=== PATIENT | female | born 1995 | race Caucasian/White ===

== ENCOUNTER 2020-12-01 21:12 | Emergency (ER) | payer BC ==
[2020-12-01 21:27] VITALS: RESP 20; TEMP 98.3
[2020-12-01] MEDS ORDERED: ALBUTEROL NEB (CONC) 2.5 MG/0.5 ML INHALATION STA (21:38)
[2020-12-01] MEDS ORDERED: IPRATROPIUM-ALBUTEROL 3 ML NEB INHALATION STA ×2 (21:39→23:35)
[2020-12-01] MEDS ORDERED: methylPREDNISolone SOD SUCCI 125 MG/2 ML VIAL IM ONE (21:39)
--- NOTE | 2020-12-01 22:00 | ED ---
SOB HPI - General Chief Complaint: Shortness of Breath Stated Complaint: Diff Breathing Time Seen by Provider: 12/01/20 21:32 Source: patient Mode of arrival: wheelchair - History of Present Illness Initial Comments: 25-year-old female patient presents to the emergency department today for evaluation of cough and shortness of breath. Patient states she started 2 days ago with upper respiratory symptoms including nasal congestion and sore throat. States she developed a cough. Patient states today she feels like it is harder to take a deep breath and is concerned she may have pneumonia. Denies any fever or chills. States she has been slightly nauseated denies any vomiting. Denies any abdominal pain or back pain. States that she does have history of bronchitis and does vape. Denies chance of . Patient denies any recent rash, chest pain, abdominal pain, diarrhea, constipation, back pain, numbness, tingling, dizziness, weakness, hematuria, dysuria, urinary urgency, urinary frequency, headache, visual changes, or any other complaints. - Related Data Home Medications Medication Instructions Recorded Confirmed Ibuprofen [Motrin Ib] 400 mg PO Q8H PRN 12/01/20 12/01/20 Previous Rx's Medication Instructions Recorded Albuterol Sulfate [Proair Hfa] 1 - 2 puff INHALATION Q6HR PRN #1 12/01/20 inhaler guaiFENesin-DM 600/30MG [Mucinex 2 each PO Q12HR PRN #20 tab.er.12h 12/01/20 Dm] predniSONE 50 mg PO DAILY #5 tablet 12/01/20 Allergies Allergy/AdvReac Type Severity Reaction Status Date / Time No Known Allergies Allergy Verified 12/01/20 21:55 Review of Systems ROS Statement: Those systems with pertinent positive or pertinent negative responses have been documented in the HPI. ROS Other: All systems not noted in ROS Statement are negative. Past Medical History Past Medical History: Thyroid Disorder History of Any Multi-Drug Resistant Organisms: None Reported Past Surgical History: No Surgical Hx Reported Past Psychological History: No Psychological Hx Reported, Anxiety, Depression, PTSD Smoking Status: Vaper Past Alcohol Use History: None Reported Past Drug Use History: None Reported General Exam General appearance: alert, in no apparent distress, other (This is a well- developed, well-nourished adult female patient in no acute distress. Vital signs upon presentation are temperature 98.3F, pulse 110, respirations 20, blo od pressure 116/81, pulse ox 94% on room air.) Respiratory exam: Present: wheezes (Tight expiratory wheezing noted in the posterior lung schwarz). Absent: normal lung sounds bilaterally, respiratory distress, rales, rhonchi, stridor, accessory muscle use Cardiovascular Exam: Present: normal rhythm, tachycardia, normal heart sounds. Absent: systolic murmur, diastolic murmur, rubs, gallop, clicks GI/Abdominal exam: Present: soft, normal bowel sounds. Absent: distended, tenderness, guarding, rebound, rigid Neurological exam: Present: alert, oriented X3, CN II-XII intact Psychiatric exam: Present: normal affect, normal mood Skin exam: Present: warm, dry, intact, normal color. Absent: rash Course Vital Signs 12/01/20 12/01/20 12/01/20 21:25 22:01 22:08 Temperature 98.3 F Pulse Rate 110 H 93 96 Respiratory 20 20 Rate Blood Pressure 116/81 O2 Sat by Pulse 94 L Oximetry 12/01/20 12/01/20 12/01/20 23:37 23:41 23:52 Temperature 98.3 F Pulse Rate 111 H 111 H 116 H Respiratory Rate Blood Pressure 99/80 O2 Sat by Pulse 93 L Oximetry 12/01/20 23:57 Temperature Pulse Rate Respiratory Rate Blood Pressure O2 Sat by Pulse 96 Oximetry Medical Decision Making - Medical Decision Making 25-year-old female patient presents to the emergency department today for evaluation of shortness of breath and cough. Some his been going on for the last 2 days. Physical examination did reveal pharyngeal erythema. She did have tight expiratory wheezing noted throughout the posterior lung schwarz. Oxygen saturation upon arrival is round 94% on room air. Patient was given IM steroid injection and multiple breathing treatments. Chest x-ray is negative. Coronavi rupa test is negative. Upon reevaluation she is resting comfortably in bed and does report improve symptoms. She does have some mild wheezing remaining. Oxygen saturations did improve to 96%. Symptoms are consistent with acute bronchitis. She'll be discharged home with a course of steroids, Mucinex, and a Pro Air inhaler. She is instructed to follow-up with her primary care physician for recheck in 1-2 days. Return parameters were discussed in detail. She verbalizes understanding and agrees with this plan. Case discussed with Dr. Torres. - Lab Data Lab Results 12/01/20 12/01/20 Range/Units 21:53 22:01 Urine HCG, Qual Not Detected (Not Detectd) Coronavirus (PCR) Not Detected (Not Detectd) - Radiology Data Radiology results: report reviewed, image reviewed Two-view x-ray of the chest is obtained. Report was reviewed in its entirety. Impression by Dr. Nunez shows normal chest. Disposition Clinical Impression: Acute bronchitis Disposition: HOME SELF-CARE Condition: Good Instructions (If sedation given, give patient instructions): Acute Bronchitis (ED) Additional Instructions: Take medications as directed. Complete steroid prescription in full. Follow-up with your primary care physician for recheck in 1-2 days. Return to the emergency department for any new, worsening, or concerning symptoms. Prescriptions: guaiFENesin-DM 600/30MG [Mucinex Dm] 2 each PO Q12HR PRN #20 tab.er.12h PRN Reason: Cough predniSONE 50 mg PO DAILY #5 tablet Albuterol Sulfate [Proair Hfa] 1 - 2 puff INHALATION Q6HR PRN #1 inhaler PRN Reason: Shortness Of Breath Is patient prescribed a controlled substance at d/c from ED?: No Referrals: Maximiliano Lunsford MD [Primary Care Provider] - 1-2 days Time of Disposition: 23:17
--- NOTE | 2020-12-01 22:44 | XR ---
EXAMINATION TYPE: XR chest 2V DATE OF EXAM: 12/01/2020 COMPARISON: NONE HISTORY: Wheezing TECHNIQUE: 2 views FINDINGS: Heart and mediastinum are normal. Lungs are clear. Diaphragm is normal. Bony thorax appears normal. IMPRESSION: Normal chest.
[2020-12-01 23:37] VITALS: BP 99/80
[2020-12-01 23:53] VITALS: PULSE 116
== END 2020-12-01 23:55 | disposition home or self-care (01) ==
LOC: EC 21:12
DX: J20.9 Acute bronchitis, unspecified (principal); R00.0 Tachycardia, unspecified; F17.290 Nicotine dependence, other tobacco product, uncomplicated; Z20.822 Contact with and (suspected) exposure to COVID-19
CPT/HCPCS: 94640 ×2; 81025; 87635; 71046; 99285; 96372; J2930

== ENCOUNTER 2021-06-19 17:04 | Emergency (ER) | payer BC ==
[2021-06-19 18:24] VITALS: BP 129/75; PULSE 78; RESP 18; TEMP 98.6
[2021-06-19] MEDS ORDERED: ONDANSETRON 4 MG/2 ML VIAL IVP STA (20:48)
[2021-06-19] MEDS ORDERED: MORPHINE SULFATE 4 MG/ML SYRINGE IVP STA (20:48)
[2021-06-19] MEDS ORDERED: SODIUM CHLORIDE 0.9% 1,000 ML IV STA (20:48)
[2021-06-19 21:20] LABS: Appearance,Urine Clear (Clear); Bilirubin,Urine Negative (Negative); Blood,Urine Negative (Negative); Color,Urine Light Yellow; Glucose,Urine (UA) Negative (Negative); Ketones,Urine Negative (Negative); Leukocyte Esterase,Urine Trace (Negative); Mucus,Urine Rare /hpf; Nitrite,Urine Negative (Negative); Protein,Urine Negative (Negative); RBC,Urine <1 /hpf (0-5); Specific Gravity,Urine 1.015 (1.001-1.035); Squamous Epithelial Cell,Urine 4 /hpf (0-4); Urobilinogen,Urine <2.0 mg/dL (<2.0); WBC,Urine 1 /hpf (0-5)
[2021-06-19 22:01] LABS: ALT 17 U/L (4-34); AST 18 U/L (14-36); African American GFR (CKD) >90 (>60 ml/min/1.73 sqM); Albumin 4.5 g/dL (3.5-5.0); Alkaline Phosphatase 42 U/L (38-126); Amylase 41 U/L (30-110); Anion Gap 7 mmol/L; Blood Urea Nitrogen 13 mg/dL (7-17); Calcium 9.6 mg/dL (8.4-10.2); Carbon Dioxide 23 mmol/L (22-30); Chloride 106 mmol/L (98-107); Glucose 87 mg/dL (74-99); Lipase 103 U/L (23-300); Non-African American GFR(CKD) >90 (>60 ml/min/1.73 sqM); Potassium 4.5 mmol/L (3.5-5.1); Sodium 136 mmol/L (137-145); Total Bilirubin 0.5 mg/dL (0.2-1.3); Total Protein 7.9 g/dL (6.3-8.2)
[2021-06-19] MEDS ORDERED: KETOROLAC 15 MG/ML 1 ML VIAL IVP STA (22:01)
[2021-06-19 22:02] LABS: Basophils # (A) 0.1 k/uL (0-0.2); Basophils % (A) 1 %; Eosinophils # (A) 0.7 k/uL (0-0.7); Eosinophils % (A) 9 %; HGB 14.3 gm/dL (11.4-16.0); Lymphocytes # (A) 2.5 k/uL (1.0-4.8); Lymphocytes % (A) 33 %; MCH 34.2 pg (25.0-35.0); MCHC 34.1 g/dL (31.0-37.0); MCV 100.2 fL (80.0-100.0); Mean Platelet Volume 7.3; Monocytes # (A) 0.4 k/uL (0-1.0); Monocytes % (A) 5 %; Neutrophils # (A) 3.9 k/uL (1.3-7.7); Neutrophils % (A) 51 %; Platelet Count 282 k/uL (150-450); RBC 4.19 m/uL (3.80-5.40); RDW 12.6 % (11.5-15.5); WBC 7.7 k/uL (3.8-10.6)
--- NOTE | 2021-06-19 22:38 | CT ---
EXAMINATION TYPE: CT abdomen pelvis w con DATE OF EXAM: 06/19/2021 COMPARISON: HISTORY: LT side abdominal pain CT DLP: 1057.5 mGycm Automated exposure control for dose reduction was used. CONTRAST: Performed with IV Contrast, patient injected with 100 mL of Isovue 300. Images obtained from the diaphragm to the floor the pelvis with IV contrast. Lung bases are clear. There is no pleural effusion. Heart is normal. There is no pericardial effusion . Liver spleen stomach pancreas gallbladder appear intact. Bile ducts are not dilated. There is no adrenal mass. Kidneys show satisfactory contrast opacification. There is no hydronephrosi s. Ureters are not dilated. There is no retroperitoneal adenopathy. Bladder distends smoothly. Uterus is anteverted. There is no inguinal hernia. There is no evidence of a pelvic mass. There is no free fluid in the pelvis. Appendix is medial and appears normal. Delayed images show normal renal excretio n. There is no mesenteric edema. There is no ascites or free air. There is no sign of a bowel obstructio n. Lumbar vertebra have normal alignment. Posterior elements are intact. Facet joints are intact. Bon y pelvis is intact. Hip joints are intact. There is mild posterior central L4-5 lumbar disc herniatio n. IMPRESSION: Normal appendix. I do not see a cause for left side pain. No evidence of renal mass or obstruction.
[2021-06-19] MEDS ORDERED: ONDANSETRON 4 MG ODT STARTER PACK 2 TAB BTL PO STA (22:57)
--- NOTE | 2021-06-19 22:57 | ED ---
General Adult HPI - General Chief complaint: Abdominal Pain Stated complaint: abd pain Time Seen by Provider: 06/19/21 20:37 Source: patient Mode of arrival: ambulatory - History of Present Illness Initial comments: 25-year-old female without any significant past medical history presents to the emergency room for a chief complaint of abdominal pain. Patient states this started this morning around 8 AM. States she had woken up and was resting and the pain started. It did not start after food. She reports pain is on the left side of her abdomen states it is towards the top of her abdomen. Describes as a sharp pain. Patient is nauseous but denies vomiting. Denies fevers or chills. Denies diarrhea.Patient has no other complaints at this time including shortness of breath, chest pain, abdominal pain, nausea or vomiting, headache, or visual changes. - Related Data Home Medications Medication Instructions Recorded Confirmed Levothyroxine Sodium [Synthroid] 100 mcg PO DAILY 06/19/21 06/19/21 Previous Rx's Medication Instructions Recorded Famotidine [Pepcid] 20 mg PO BID #30 tablet 06/19/21 Ondansetron [Zofran ODT] 4 mg PO Q8HR PRN #15 tab 06/19/21 Allergies Allergy/AdvReac Type Severity Reaction Status Date / Time No Known Allergies Allergy Verified 06/19/21 20:59 Review of Systems ROS Statement: Those systems with pertinent positive or pertinent negative responses have been documented in the HPI. ROS Other: All systems not noted in ROS Statement are negative. Past Medical History Past Medical History: Thyroid Disorder History of Any Multi-Drug Resistant Organisms: None Reported Past Surgical History: No Surgical Hx Reported Past Psychological History: No Psychological Hx Reported, Anxiety, Depression, PTSD Smoking Status: Never smoker Past Alcohol Use History: None Reported Past Drug Use History: None Reported General Exam General appearance: alert, in no apparent distress Head exam: Present: atraumatic, normocephalic, normal inspection Eye exam: Present: normal appearance, PERRL, EOMI. Absent: scleral icterus, conjunctival injection ENT exam: Present: normal exam, mucous membranes moist Neck exam: Present: normal inspection, full ROM. Absent: tenderness Respiratory exam: Present: normal lung sounds bilaterally. Absent: respiratory distress, wheezes Cardiovascular Exam: Present: regular rate, normal rhythm, normal heart sounds GI/Abdominal exam: Present: soft, tenderness (Minimal left upper quadrant tenderness. No lower abdominal tenderness. No right upper quadrant tenderness. Negative Ramires sign.), normal bowel sounds. Absent: distended Course Vital Signs 06/19/21 18:21 Temperature 98.6 F Pulse Rate 78 Respiratory 18 Rate Blood Pressure 129/75 O2 Sat by Pulse 98 Oximetry Medical Decision Making - Medical Decision Making Vitals are stable. HPI and physical exam as documented. CBC CMP unremarkable. Urinalysis does not show any evidence of infection. HCG is negative. CT abdomen and pelvis shows a normal appendix. No cause for left-sided pain. No evidence for renal mass or obstruction. Patient was given pain medicine and had significant permanent symptoms. Stating her pain is almost gone. At this time patient and we discharged home to follow up with primary care. Her doctor wants to see her tomorrow for an appointment as he is who sent her in. She will return here for any worsening symptoms. - Lab Data Result diagrams: 06/19/21 21:43 06/19/21 21:43 Lab Results 06/19/21 06/19/21 06/19/21 Range/Units 21:10 21:16 21:43 WBC 7.7 (3.8-10.6) k/uL RBC 4.19 (3.80-5.40) m/uL Hgb 14.3 (11.4-16.0) gm/dL Hct 42.0 (34.0-46.0) % MCV 100.2 H (80.0-100.0) fL MCH 34.2 (25.0-35.0) pg MCHC 34.1 (31.0-37.0) g/dL RDW 12.6 (11.5-15.5) % Plt Count 282 (150-450) k/uL MPV 7.3 Neutrophils % 51 % Lymphocytes % 33 % Monocytes % 5 % Eosinophils % 9 % Basophils % 1 % Neutrophils # 3.9 (1.3-7.7) k/uL Lymphocytes # 2.5 (1.0-4.8) k/uL Monocytes # 0.4 (0-1.0) k/uL Eosinophils # 0.7 (0-0.7) k/uL Basophils # 0.1 (0-0.2) k/uL Sodium (137-145) mmol/L Potassium (3.5-5.1) mmol/L Chloride (98-107) mmol/L Carbon Dioxide (22-30) mmol/L Anion Gap mmol/L BUN (7-17) mg/dL Creatinine (0.52-1.04) mg/dL Est GFR (CKD-EPI)AfAm (>60 ml/min/1.73 sqM) Est GFR (CKD-EPI)NonAf (>60 ml/min/1.73 sqM) Glucose (74-99) mg/dL Calcium (8.4-10.2) mg/dL Total Bilirubin (0.2-1.3) mg/dL AST (14-36) U/L ALT (4-34) U/L Alkaline Phosphatase (38-126) U/L Total Protein (6.3-8.2) g/dL Albumin (3.5-5.0) g/dL Amylase (30-110) U/L Lipase (23-300) U/L Urine Color Light Yellow Urine Appearance Clear (Clear) Urine pH 5.0 (5.0-8.0) Ur Specific Wagoner 1.015 (1.001-1.035) Urine Protein Negative (Negative) Urine Glucose (UA) Negative (Negative) Urine Ketones Negative (Negative) Urine Blood Negative (Negative) Urine Nitrite Negative (Negative) Urine Bilirubin Negative (Negative) Urine Urobilinogen <2.0 (<2.0) mg/dL Ur Leukocyte Esterase Trace H (Negative) Urine RBC <1 (0-5) /hpf Urine WBC 1 (0-5) /hpf Ur Squamous Epith Cells 4 (0-4) /hpf Urine Mucus Rare H (None) /hpf Urine HCG, Qual Not Detected (Not Detectd) 06/19/21 Range/Units 21:43 WBC (3.8-10.6) k/uL RBC (3.80-5.40) m/uL Hgb (11.4-16.0) gm/dL Hct (34.0-46.0) % MCV (80.0-100.0) fL MCH (25.0-35.0) pg MCHC (31.0-37.0) g/dL RDW (11.5-15.5) % Plt Count (150-450) k/uL MPV Neutrophils % % Lymphocytes % % Monocytes % % Eosinophils % % Basophils % % Neutrophils # (1.3-7.7) k/uL Lymphocytes # (1.0-4.8) k/uL Monocytes # (0-1.0) k/uL Eosinophils # (0-0.7) k/uL Basophils # (0-0.2) k/uL Sodium 136 L (137-145) mmol/L Potassium 4.5 (3.5-5.1) mmol/L Chloride 106 (98-107) mmol/L Carbon Dioxide 23 (22-30) mmol/L Anion Gap 7 mmol/L BUN 13 (7-17) mg/dL Creatinine 0.72 (0.52-1.04) mg/dL Est GFR (CKD-EPI)AfAm >90 (>60 ml/min/1.73 sqM) Est GFR (CKD-EPI)NonAf >90 (>60 ml/min/1.73 sqM) Glucose 87 (74-99) mg/dL Calcium 9.6 (8.4-10.2) mg/dL Total Bilirubin 0.5 (0.2-1.3) mg/dL AST 18 (14-36) U/L ALT 17 (4-34) U/L Alkaline Phosphatase 42 (38-126) U/L Total Protein 7.9 (6.3-8.2) g/dL Albumin 4.5 (3.5-5.0) g/dL Amylase 41 (30-110) U/L Lipase 103 (23-300) U/L Urine Color Urine Appearance (Clear) Urine pH (5.0-8.0) Ur Specific Wagoner (1.001-1.035) Urine Protein (Negative) Urine Glucose (UA) (Negative) Urine Ketones (Negative) Urine Blood (Negative) Urine Nitrite (Negative) Urine Bilirubin (Negative) Urine Urobilinogen (<2.0) mg/dL Ur Leukocyte Esterase (Negative) Urine RBC (0-5) /hpf Urine WBC (0-5) /hpf Ur Squamous Epith Cells (0-4) /hpf Urine Mucus (None) /hpf Urine HCG, Qual (Not Detectd) Disposition Clinical Impression: Abdominal pain Disposition: HOME SELF-CARE Condition: Good Instructions (If sedation given, give patient instructions): Abdominal Pain (ED) Additional Instructions: Take medications as directed. Follow-up with primary care. Return to the emergency room for any worsening symptoms. Prescriptions: Famotidine [Pepcid] 20 mg PO BID #30 tablet Ondansetron [Zofran ODT] 4 mg PO Q8HR PRN #15 tab PRN Reason: Nausea Is patient prescribed a controlled substance at d/c from ED?: No Referrals: Maximiliano Lunsford MD [Primary Care Provider] - 1-2 days Time of Disposition: 22:56
== END 2021-06-19 23:39 | disposition home or self-care (01) ==
LOC: EC 17:04
DX: R10.9 Unspecified abdominal pain (principal); R11.0 Nausea; E07.9 Disorder of thyroid, unspecified; Z79.890 Hormone replacement therapy
CPT/HCPCS: 36415; 80053; 82150; 83690; 85025; 81001; 81025; 74177; 99284; 96374; 96375; 96361; J2405; J1885; S0119; Q9967

== ENCOUNTER 2021-09-23 03:47 | Emergency (ER) | payer BC ==
[2021-09-23] MEDS ORDERED: SODIUM CHLORIDE 0.9% 1,000 ML IV STA (04:17)
[2021-09-23] MEDS ORDERED: ONDANSETRON 4 MG/2 ML VIAL IVP STA (04:18)
[2021-09-23] MEDS ORDERED: PANTOPRAZOLE 40 MG/10 ML VIAL IVP STA (04:18)
--- NOTE | 2021-09-23 04:19 | ED ---
Overdose HPI - General Chief Complaint: Overdose Stated Complaint: poss drug ingestion,anxiety Time Seen by Provider: 09/23/21 04:02 Source: patient, family, RN notes reviewed, old records reviewed Mode of arrival: ambulatory Limitations: no limitations - History of Present Illness Initial Comments: This is a 25-year-old female to the emergency room today. Patient states evaluation regards to nausea vomiting weakness intoxication possible drug ingest ion. Patient does not feel well. Doesn't having abdominal pain very emotional crying. Not homicidal or suicidal. Denies any significant toxic drug and ingestion intentionally. Does admit to drinking alcohol MD Complaint: accidental overdose -: hour(s) How Overdose Was Discovered: family/friend present at time Context: Intentional Overdose: drug/ETOH problems Context: Accidental Overdose: wanted to get high Associated Symptoms: depression Treatments Prior to Arrival: none - Related Data Home Medications Medication Instructions Recorded Confirmed Levothyroxine Sodium [Synthroid] 100 mcg PO DAILY 06/19/21 06/19/21 Previous Rx's Medication Instructions Recorded Famotidine [Pepcid] 20 mg PO BID #30 tablet 06/19/21 Ondansetron [Zofran ODT] 4 mg PO Q8HR PRN #15 tab 06/19/21 Allergies Allergy/AdvReac Type Severity Reaction Status Date / Time No Known Allergies Allergy Verified 09/23/21 03:53 Review of Systems ROS Statement: Those systems with pertinent positive or pertinent negative responses have been documented in the HPI. ROS Other: All systems not noted in ROS Statement are negative. Past Medical History Past Medical History: Thyroid Disorder History of Any Multi-Drug Resistant Organisms: None Reported Past Surgical History: No Surgical Hx Reported Past Psychological History: No Psychological Hx Reported, Anxiety, Depression, PTSD Smoking Status: Never smoker Past Alcohol Use History: Occasional Past Drug Use History: Marijuana General Exam General appearance: alert, in no apparent distress Head exam: Present: atraumatic, normocephalic, normal inspection Eye exam: Present: normal appearance, PERRL, EOMI. Absent: scleral icterus, conjunctival injection, periorbital swelling ENT exam: Present: normal exam, mucous membranes moist Neck exam: Present: normal inspection. Absent: tenderness, meningismus, lymphadenopathy Respiratory exam: Present: normal lung sounds bilaterally. Absent: respiratory distress, wheezes, rales, rhonchi, stridor Cardiovascular Exam: Present: regular rate, normal rhythm, normal heart sounds. Absent: systolic murmur, diastolic murmur, rubs, gallop, clicks GI/Abdominal exam: Present: soft, normal bowel sounds. Absent: distended, tenderness, guarding, rebound, rigid Extremities exam: Present: normal inspection, full ROM, normal capillary refill. Absent: tenderness, pedal edema, joint swelling, calf tenderness Back exam: Present: normal inspection Neurological exam: Present: alert, oriented X3, CN II-XII intact Psychiatric exam: Present: normal affect, normal mood Skin exam: Present: warm, dry, intact, normal color. Absent: rash Course Vital Signs 09/23/21 09/23/21 03:53 08:00 Temperature 97.4 F L 97.9 F Pulse Rate 78 80 Respiratory 16 Rate Blood Pressure 100/64 O2 Sat by Pulse 97 99 Oximetry - Reevaluation(s) Reevaluation #1: 09/23/21 04:20 Record is reviewed Medical Decision Making - Medical Decision Making 26 female. Patient does have drug Ingestion with alcohol intoxication accidental drug ingestion, patient is seen and evaluated psychiatry here in the ER okay for discharge home - Lab Data Result diagrams: 09/23/21 04:20 09/23/21 04:20 Lab Results 09/23/21 09/23/21 Range/Units 04:20 04:20 WBC 6.4 (3.8-10.6) k/uL RBC 4.36 (3.80-5.40) m/uL Hgb 14.7 (11.4-16.0) gm/dL Hct 41.7 (34.0-46.0) % MCV 95.7 (80.0-100.0) fL MCH 33.7 (25.0-35.0) pg MCHC 35.2 (31.0-37.0) g/dL RDW 11.5 (11.5-15.5) % Plt Count 327 (150-450) k/uL MPV 7.6 Neutrophils % 54 % Lymphocytes % 31 % Monocytes % 4 % Eosinophils % 9 % Basophils % 1 % Neutrophils # 3.5 (1.3-7.7) k/uL Lymphocytes # 2.0 (1.0-4.8) k/uL Monocytes # 0.3 (0-1.0) k/uL Eosinophils # 0.6 (0-0.7) k/uL Basophils # 0.0 (0-0.2) k/uL Sodium 139 (137-145) mmol/L Potassium 3.9 (3.5-5.1) mmol/L Chloride 103 (98-107) mmol/L Carbon Dioxide 22 (22-30) mmol/L Anion Gap 14 mmol/L BUN 9 (7-17) mg/dL Creatinine 0.71 (0.52-1.04) mg/dL Est GFR (CKD-EPI)AfAm >90 (>60 ml/min/1.73 sqM) Est GFR (CKD-EPI)NonAf >90 (>60 ml/min/1.73 sqM) Glucose 116 H (74-99) mg/dL Calcium 9.8 (8.4-10.2) mg/dL Total Bilirubin 0.3 (0.2-1.3) mg/dL AST 20 (14-36) U/L ALT 22 (4-34) U/L Alkaline Phosphatase 44 (38-126) U/L Total Protein 8.8 H (6.3-8.2) g/dL Albumin 5.0 (3.5-5.0) g/dL Lipase 86 (23-300) U/L Salicylates <1.0 mg/dL Acetaminophen <10.0 ug/mL Serum Alcohol 206 H* mg/dL - EKG Data -: EKG Interpreted by Me (EKG shows sinus rhythm 81 NC 154 QRS 90 QTC 446) Disposition Clinical Impression: Accidental drug overdose, Alcohol intoxication Disposition: HOME SELF-CARE Condition: Good Instructions (If sedation given, give patient instructions): Adult Overdose (ED) Is patient prescribed a controlled substance at d/c from ED?: No Referrals: Maximiliano Lunsford MD [Primary Care Provider] - 1-2 days
[2021-09-23 04:43] LABS: Basophils % (A) 1 %; Eosinophils # (A) 0.6 k/uL (0-0.7); Eosinophils % (A) 9 %; HCT 41.7 % (34.0-46.0); HGB 14.7 gm/dL (11.4-16.0); Lymphocytes % (A) 31 %; MCH 33.7 pg (25.0-35.0); MCHC 35.2 g/dL (31.0-37.0); MCV 95.7 fL (80.0-100.0); Mean Platelet Volume 7.6; Monocytes # (A) 0.3 k/uL (0-1.0); Monocytes % (A) 4 %; Neutrophils # (A) 3.5 k/uL (1.3-7.7); Neutrophils % (A) 54 %; Platelet Count 327 k/uL (150-450); RBC 4.36 m/uL (3.80-5.40); RDW 11.5 % (11.5-15.5); WBC 6.4 k/uL (3.8-10.6)
[2021-09-23 05:00] LABS: ALT 22 U/L (4-34); AST 20 U/L (14-36); Acetaminophen <10.0 ug/mL; African American GFR (CKD) >90 (>60 ml/min/1.73 sqM); Alkaline Phosphatase 44 U/L (38-126); Anion Gap 14 mmol/L; Blood Urea Nitrogen 9 mg/dL (7-17); Calcium 9.8 mg/dL (8.4-10.2); Carbon Dioxide 22 mmol/L (22-30); Chloride 103 mmol/L (98-107); Glucose 116 mg/dL (74-99); Lipase 86 U/L (23-300); Non-African American GFR(CKD) >90 (>60 ml/min/1.73 sqM); Potassium 3.9 mmol/L (3.5-5.1); Salicylate <1.0 mg/dL; Sodium 139 mmol/L (137-145); Total Bilirubin 0.3 mg/dL (0.2-1.3); Total Protein 8.8 g/dL (6.3-8.2)
[2021-09-23 05:11] LABS: Alcohol 206 mg/dL
[2021-09-23] MEDS ORDERED: KETOROLAC 30 MG/ML 1 ML VIAL IVP STA (05:45)
[2021-09-23 08:05] VITALS: BP 100/64; PULSE 80; RESP 16; TEMP 97.9
== END 2021-09-23 08:05 | disposition home or self-care (01) ==
LOC: EC 03:47
DX: T50.901A Poisoning by unspecified drugs, medicaments and biological substances, accidental (unintentional), initial encounter (principal); E07.9 Disorder of thyroid, unspecified; F10.129 Alcohol abuse with intoxication, unspecified; Z79.890 Hormone replacement therapy
CPT/HCPCS: 36415; 93005; 80053; 83690; 85025; 80143; 80320; 80179; 96374; 96375; 99285; J2405; J1885; C9113

== ENCOUNTER 2022-01-18 16:12 | Emergency (ER) | payer BC, OTHER ==
--- NOTE | 2022-01-18 18:19 | ED ---
Back Pain HPI - General Chief Complaint: Back Pain/Injury Stated Complaint: back pain Time Seen by Provider: 01/18/22 17:57 Source: patient, RN notes reviewed - History of Present Illness Initial Comments: This is a pleasant 26-year-old female presents to emergency department complaining of low back pain. Patient states that she went to get up yesterday bed and twisted her back. She is complaining of pain to the lumbar paraspinal area. No problems with balance urination. No fever or chills. No abdominal pain. Denies chance of . Patient states pain sharp in nature and movement, alleviated by position and rest. She did try [id number] Tylenol. Patient has no significant past medical history. Positive cigarette smoker. No drug or alcohol abuse. No headache, no fever or chills, no changes in vision or hearing, no sore throat or difficulty with speech, no neck pain, no chest pain or shortness of breath, no abdominal pain, no nausea or vomiting, no changes in urination or bowel movements, no numbness or tingling, no extremity pain, no skin rashes or lesions. MD Complaint: back pain Onset/Timin -: days(s) - Related Data Home Medications Medication Instructions Recorded Confirmed Levothyroxine Sodium [Synthroid] 100 mcg PO DAILY 06/19/21 06/19/21 Previous Rx's Medication Instructions Recorded Famotidine [Pepcid] 20 mg PO BID #30 tablet 06/19/21 Ondansetron [Zofran ODT] 4 mg PO Q8HR PRN #15 tab 06/19/21 Acetaminophen [Tylenol] 500 mg PO Q4-6H PRN #24 tab 01/18/22 Cyclobenzaprine [Flexeril] 10 mg PO TID PRN #20 tab 01/18/22 Ibuprofen [Motrin] 600 mg PO Q8HR PRN #30 tab 01/18/22 Allergies Allergy/AdvReac Type Severity Reaction Status Date / Time No Known Allergies Allergy Verified 01/18/22 16:15 Review of Systems ROS Statement: Those systems with pertinent positive or pertinent negative responses have been documented in the HPI. ROS Other: All systems not noted in ROS Statement are negative. Past Medical History Past Medical History: Thyroid Disorder History of Any Multi-Drug Resistant Organisms: None Reported Past Surgical History: No Surgical Hx Reported Past Psychological History: No Psychological Hx Reported, Anxiety, Depression, PTSD Smoking Status: Never smoker Past Alcohol Use History: Occasional Past Drug Use History: Marijuana General Exam - General Exam Comments Initial Comments: Healthy-appearing female in no significant distress. Patient does not appear ill or toxic. Vital signs reviewed General appearance: alert, in no apparent distress Head exam: Present: atraumatic, normocephalic, normal inspection Eye exam: Present: normal appearance, PERRL, EOMI. Absent: scleral icterus, conjunctival injection, periorbital swelling ENT exam: Present: normal exam, mucous membranes moist Neck exam: Present: normal inspection. Absent: tenderness, meningismus, lymphadenopathy Respiratory exam: Present: normal lung sounds bilaterally. Absent: respiratory distress, wheezes, rales, rhonchi, stridor Cardiovascular Exam: Present: regular rate, normal rhythm, normal heart sounds. Absent: systolic murmur, diastolic murmur, rubs, gallop, clicks GI/Abdominal exam: Present: soft, normal bowel sounds. Absent: distended, tenderness, guarding, rebound, rigid Rectal exam: Present: deferred Extremities exam: Present: normal inspection, full ROM, normal capillary refill. Absent: tenderness, pedal edema, joint swelling, calf tenderness Back exam: Present: normal inspection, tenderness (Mild tenderness to the lumbar paraspinals.), paraspinal tenderness, other (Straight leg raise is negative bilaterally.). Absent: full ROM (Range of motion limited by pain.), CVA tenderness (L), muscle spasm, vertebral tenderness Neurological exam: Present: alert, oriented X3, CN II-XII intact, normal gait, r eflexes normal. Absent: abnormal gait, motor sensory deficit Psychiatric exam: Present: normal affect, normal mood Skin exam: Present: warm, dry, intact, normal color. Absent: rash Course Vital Signs 01/18/22 16:13 Temperature 98.8 F Pulse Rate 80 Respiratory 16 Rate Medical Decision Making - Medical Decision Making -There are no red flags for concerning back pathology. Specifically: -No history of cancer, this is not a mass effect, MRI not indicated. -No anticoagulation, this is not a bleed. -No fevers, no IVDU, this is not an infectious process. -No trauma, no bony pain, x-rays are not indicated. -With a normal neuro exam, and no urinary or bowel retention or incontinence, there is no clinical sign of motor defect or cauda equina - MRI is not indicated at this point. -No pulsating abdominal mass or risk factors for AAA. -Pain is relieved with rest, which is also less concerning. -I do not believe that x-rays or emergent MRI is indicated at this time. -We will treat symptomatically and discharge home with follow up instructions. Disposition Clinical Impression: Acute lumbosacral myofascial strain, Cigarette smoker Disposition: HOME SELF-CARE Condition: Stable Instructions (If sedation given, give patient instructions): How to Stop Smoking (ED), Acute Low Back Pain (ED) Additional Instructions: Follow-up with your regular physician as directed. Return to the ER immediately if any symptoms worsen, new symptoms arise, or any other problems develop. Do not drive vehicles or operating machinery while taking the muscle laxer, cyclobenzaprine Prescriptions: Cyclobenzaprine [Flexeril] 10 mg PO TID PRN #20 tab PRN Reason: Spasms Ibuprofen [Motrin] 600 mg PO Q8HR PRN #30 tab PRN Reason: Pain Acetaminophen [Tylenol] 500 mg PO Q4-6H PRN #24 tab PRN Reason: Pain Is patient prescribed a controlled substance at d/c from ED?: No Referrals: Maximiliano Lunsford MD [Primary Care Provider] - 01/24/22
[2022-01-18 18:52] VITALS: RESP 18; TEMP 98.2
[2022-01-18 18:54] VITALS: PULSE 86
[2022-01-18 19:14] VITALS: BP 118/80
== END 2022-01-18 18:51 | disposition home or self-care (01) ==
LOC: EC 16:12
DX: S39.012A Strain of muscle, fascia and tendon of lower back, initial encounter (principal); E07.9 Disorder of thyroid, unspecified; F17.210 Nicotine dependence, cigarettes, uncomplicated; Z79.890 Hormone replacement therapy
CPT/HCPCS: 99283

== ENCOUNTER 2022-02-25 05:53 | Emergency (ER) | payer BC, OTHER ==
[2022-02-25 05:57] VITALS: TEMP 97.5
[2022-02-25] MEDS ORDERED: IPRATROPIUM-ALBUTEROL 3 ML NEB INHALATION STA (07:39)
--- NOTE | 2022-02-25 07:39 | ED ---
General Adult HPI - General Chief complaint: Upper Respiratory Infection Stated complaint: pain in L armpit Time Seen by Provider: 02/25/22 06:07 Source: patient, RN notes reviewed Mode of arrival: ambulatory Limitations: no limitations - History of Present Illness Initial comments: 26-year-old female presents emergency Department with chief complaint cough and cold-like symptoms. Patient states that she started having some wheezing, shortness breath, pain in her ribs. Patient states she started coughing. States is productive cough. Patient felt that she had a fever but no recorded temperature. No GI symptoms denies nausea and diarrhea constipation no headache or dizziness no sore throat. - Related Data Home Medications Medication Instructions Recorded Confirmed Levothyroxine Sodium [Synthroid] 100 mcg PO DAILY 06/19/21 06/19/21 Previous Rx's Medication Instructions Recorded Famotidine [Pepcid] 20 mg PO BID #30 tablet 06/19/21 Ondansetron [Zofran ODT] 4 mg PO Q8HR PRN #15 tab 06/19/21 Acetaminophen [Tylenol] 500 mg PO Q4-6H PRN #24 tab 01/18/22 Cyclobenzaprine [Flexeril] 10 mg PO TID PRN #20 tab 01/18/22 Ibuprofen [Motrin] 600 mg PO Q8HR PRN #30 tab 01/18/22 Azithromycin [Zithromax Z-pack (6 0 mg PO DIRECTED #1 packet 02/25/22 tabs)] predniSONE 50 mg PO DAILY #5 tab 02/25/22 Allergies Allergy/AdvReac Type Severity Reaction Status Date / Time No Known Allergies Allergy Verified 02/25/22 05:54 Review of Systems ROS Statement: Those systems with pertinent positive or pertinent negative responses have been documented in the HPI. ROS Other: All systems not noted in ROS Statement are negative. Past Medical History Past Medical History: Thyroid Disorder History of Any Multi-Drug Resistant Organisms: None Reported Past Surgical History: No Surgical Hx Reported Past Psychological History: No Psychological Hx Reported, Anxiety, Depression, PTSD Smoking Status: Never smoker Past Alcohol Use History: Occasional Past Drug Use History: Marijuana General Exam Limitations: no limitations General appearance: alert, in no apparent distress Head exam: Present: atraumatic, normocephalic, normal inspection Eye exam: Present: normal appearance, PERRL, EOMI. Absent: scleral icterus, conjunctival injection, periorbital swelling ENT exam: Present: normal exam, normal oropharynx, mucous membranes moist Neck exam: Present: normal inspection, full ROM. Absent: tenderness, meningismu s, lymphadenopathy Respiratory exam: Present: wheezes. Absent: normal lung sounds bilaterally, respiratory distress, rales, rhonchi, stridor Cardiovascular Exam: Present: regular rate, normal rhythm, normal heart sounds. Absent: systolic murmur, diastolic murmur, rubs, gallop, clicks Course Vital Signs 02/25/22 02/25/22 02/25/22 05:54 06:57 07:54 Temperature 97.5 F L Pulse Rate 98 98 72 Respiratory 16 18 Rate Blood Pressure 121/89 O2 Sat by Pulse 99 98 Oximetry 02/25/22 02/25/22 07:56 08:03 Temperature Pulse Rate 89 76 Respiratory 16 Rate Blood Pressure 118/89 O2 Sat by Pulse 97 Oximetry Medical Decision Making - Medical Decision Making 26-year-old female presents emergency Department rib pain, dyspnea cough. Patient does have acute bronchospasms negative for covid 19 chest x-ray unremarkable. Patient we treated for acute bronchitis patient continue inhaler, steroids.Returnparameterswerediscussed. - Lab Data Lab Results 02/25/22 02/25/22 Range/Units 06:25 06:25 Coronavirus (PCR) Not Detected (Not Detectd) Influenza Type A RNA Not Detected (Not Detectd) Influenza Type B (PCR) Not Detected (Not Detectd) Disposition Clinical Impression: Bronchitis Disposition: HOME SELF-CARE Condition: Stable Instructions (If sedation given, give patient instructions): Upper Respiratory Infection (ED) Additional Instructions: Please return to the Emergency Department if symptoms worsen or any other concerns. Prescriptions: predniSONE 50 mg PO DAILY #5 tab Azithromycin [Zithromax Z-pack (6 tabs)] 0 mg PO DIRECTED #1 packet Is patient prescribed a controlled substance at d/c from ED?: No Referrals: Maximiliano Lunsford MD [Primary Care Provider] - 1-2 days Time of Disposition: 08:48
[2022-02-25 07:57] VITALS: RESP 16
--- NOTE | 2022-02-25 08:29 | XR ---
EXAM: XR Chest, 2 Views CLINICAL HISTORY: ITS.REASON XR Reason: cough TECHNIQUE: Frontal and lateral views of the chest. COMPARISON: 12/01/2020 FINDINGS: Lungs: Unremarkable. No consolidation. Pleural space: Unremarkable. No pneumothorax. Heart: Unremarkable. No cardiomegaly. Mediastinum: Unremarkable. Bones/joints: Unremarkable. IMPRESSION: Normal chest x-rays.
[2022-02-25 08:56] VITALS: BP 111/72; PULSE 84
== END 2022-02-25 08:56 | disposition home or self-care (01) ==
LOC: EC 05:53
DX: J40 Bronchitis, not specified as acute or chronic (principal); E07.9 Disorder of thyroid, unspecified; Z79.1 Long term (current) use of non-steroidal anti-inflammatories (NSAID); Z20.822 Contact with and (suspected) exposure to COVID-19
CPT/HCPCS: 71046; 87502; 87635; 94640; 99284

== ENCOUNTER 2024-02-29 16:42 | Emergency (ER) | payer OTHER ==
[2024-02-29 17:08] VITALS: RESP 16; TEMP 98.3
--- NOTE | 2024-02-29 18:01 | ED ---
General Adult HPI - General Source: patient, RN notes reviewed Mode of arrival: ambulatory Limitations: no limitations <Glenn Hahn - Last Filed: 02/29/24 18:02> - General Source: patient, RN notes reviewed Mode of arrival: ambulatory Limitations: no limitations <Meet Pack - Last Filed: 02/29/24 19:28> - General Chief complaint: Headache Stated complaint: Headache, sinus pressure, congestion Time Seen by Provider: 02/29/24 17:45 - History of Present Illness Initial comments: 28-year-old female presenting to the ED with complaints of URI symptoms. Patient states for the past 2 weeks has had sinus headache, rhinorrhea, congestion, and cough. (Glenn Hahn) Patient is a 28-year-old female present to the emergency department with concern for sinus congestion. Symptoms have been present for the past 2 weeks. Patient does have colored drainage as well as congestion. No chest congestion. No fevers. Symptoms are causing a little bit of a headache. (Meet Pack) - Related Data Home Medications Medication Instructions Recorded Confirmed Levothyroxine Sodium [Synthroid] 100 mcg PO DAILY 06/19/21 06/19/21 Previous Rx's Medication Instructions Recorded Famotidine [Pepcid] 20 mg PO BID #30 tablet 06/19/21 Ondansetron [Zofran ODT] 4 mg PO Q8HR PRN #15 tab 06/19/21 Acetaminophen [Tylenol] 500 mg PO Q4-6H PRN #24 tab 01/18/22 Cyclobenzaprine [Flexeril] 10 mg PO TID PRN #20 tab 01/18/22 Ibuprofen [Motrin] 600 mg PO Q8HR PRN #30 tab 01/18/22 Azithromycin [Zithromax Z-pack (6 0 mg PO DIRECTED #1 packet 02/25/22 tabs)] predniSONE 50 mg PO DAILY #5 tab 02/25/22 Amoxic-Pot Clav 875-125Mg 1 tab PO Q12HR #20 tab 02/29/24 [Augmentin 875-125] Allergies Allergy/AdvReac Type Severity Reaction Status Date / Time imani Allergy Swelling Verified 02/29/24 16:53 Review of Systems ROS Other: All systems not noted in ROS Statement are negative. <Glenn Hahn - Last Filed: 02/29/24 18:02> ROS Other: All systems not noted in ROS Statement are negative. Constitutional: Denies: fever, chills Eyes: Denies: eye pain ENT: Reports: as per HPI, congestion Respiratory: Denies: dyspnea Cardiovascular: Denies: chest pain Neurological: Denies: weakness, confusion <Meet Pack - Last Filed: 02/29/24 19:28> ROS Statement: Those systems with pertinent positive or pertinent negative responses have been documented in the HPI. Past Medical History Past Medical History: Thyroid Disorder History of Any Multi-Drug Resistant Organisms: None Reported Past Surgical History: No Surgical Hx Reported Past Psychological History: No Psychological Hx Reported, Anxiety, Depression, PTSD Smoking Status: Never smoker Past Alcohol Use History: Occasional Past Drug Use History: Marijuana <Glenn Hahn - Last Filed: 02/29/24 18:02> General Exam Limitations: no limitations <Glenn Hahn - Last Filed: 02/29/24 18:02> Limitations: no limitations General appearance: alert, in no apparent distress Head exam: Present: normocephalic Eye exam: Present: normal appearance ENT exam: Present: normal oropharynx, other (Tenderness over the frontal, ethmoid, and maxillary sinus) Neck exam: Present: normal inspection. Absent: tenderness, lymphadenopathy Respiratory exam: Present: normal lung sounds bilaterally Cardiovascular Exam: Present: regular rate, normal rhythm GI/Abdominal exam: Present: soft. Absent: tenderness Extremities exam: Present: normal inspection Neurological exam: Present: alert Psychiatric exam: Present: normal affect, normal mood Skin exam: Present: normal color <Meet Pack - Last Filed: 02/29/24 19:28> - General Exam Comments Initial Comments: Visual Physical Exam Vital signs reviewed General: Well-appearing, nontoxic, no acute distress. Head: Normocephalic, atraumatic Eyes: PERRLA, EOMI ENT: Airway patent Chest: Nonlabored breathing Skin: No visual rash, normal skin tone Neuro: Alert and oriented 3 Musculoskeletal: No gross abnormalities (Glenn Hahn) Course Vital Signs 02/29/24 02/29/24 16:49 19:00 Temperature 98.3 F Pulse Rate 77 68 Respiratory 16 16 Rate Blood Pressure 160/110 108/71 O2 Sat by Pulse 98 98 Oximetry Medical Decision Making <Glenn Hahn - Last Filed: 02/29/24 18:02> <Meet Pack - Last Filed: 02/29/24 19:28> - Medical Decision Making Quicknote portion performed. Signed Glenn Hahn PA-C (Glenn Hahn) Was pt. sent in by a medical professional or institution (Dr. PA, [employer], urgent care, hospital, or usp...) When possible be specific @ -No Did you speak to anyone other than the patient for history (EMS, parent, family, police, friend...)? What history was obtained from this source @ -No Did you review nursing and triage notes (agree or disagree)? Why? @ -I reviewed and agree with nursing and triage notes Were old charts reviewed (outside hosp., previous admission, EMS record, old EKG, old radiological studies, urgent care reports/EKG's, usp records)? Report findings @ -No old charts were reviewed Differential Diagnosis (chest pain, altered mental status, abdominal pain women, abdominal pain men, vaginal bleeding, weakness, fever, dyspnea, syncope, headache, dizziness, GI bleed, back pain, seizure, CVA, palpatations, mental health, musculoskeletal)? @ -Differential Fever: Pneumonia, viral URI, endocarditis, myocarditis, pericarditis, otitis, sinusitis, peritonsillar Abscess, retropharyngeal Abscess, epiglottitis, peritonitis, appendicitis, Magalys cystitis, diverticulitis, hepatitis, colitis, UTI, PID, TOA, pyelonephritis, prostatitis, epididymitis, meningitis, encephalitis, pulmonary embolism, CVA, thyroid storm, pancreatitis, adrenal crisis, cavernous sinus thrombosis, this is not meant to be an all-inclusive list. EKG interpreted by me (3pts min.). @ -As above X-rays interpreted by me (1pt min.). @ -None done CT interpreted by me (1pt min.). @ -None done U/S interpreted by me (1pt. min.). @ -None done What testing was considered but not performed or refused? (CT, X-rays, U/S, labs)? Why? @ -None What meds were considered but not given or refused? Why? @ -None Did you discuss the management of the patient with other professionals (professionals i.e. , PA, [employer], lab, RT, psych nurse, director of social work, other sports coach or instructor, teacher, armor officer, case folder)? Give summary @ -No Was smoking cessation discussed for >3mins.? @ -No Was critical care preformed (if so, how long)? @ -No Were there social determinants of health that impacted care today? How? (Homelessness, low income, unemployed, alcoholism, drug addiction, transportation, low edu. Level, literacy, decrease access to med. care, fdc, rehab)? @ -No Was there de-escalation of care discussed even if they declined (Discuss DNR or withdrawal of care, Hospice)? DNR status @ -No What co-morbidities impacted this encounter? (DM, HTN, Smoking, COPD, CAD, Cancer, CVA, ARF, Chemo, Hep., AIDS, mental health diagnosis, sleep apnea, morbid obesity)? @ -None Was patient admitted / discharged? Hospital course, mention meds given and route, prescriptions, significant lab abnormalities, going to OR and other pertinent info. @ -Patient presents with sinus congestion concern for sinusitis. Patient has been having symptoms consistent with that and symptoms greater than 14 days and therefore will be discharged with prescription for Augmentin. Patient updated. Undiagnosed new problem with uncertain prognosis? @ -No Drug Therapy requiring intensive monitoring for toxicity (Heparin, Nitro, Insulin, Cardizem)? @ -No Were any procedures done? @ -No Diagnosis/symptom? @ -Sinusitis Acute, or Chronic, or Acute on Chronic? @ -Acute Uncomplicated (without systemic symptoms) or Complicated (systemic symptoms)? @ -Default Side effects of treatment? @ -No Exacerbation, Progression, or Severe Exacerbation? @ -No Poses a threat to life or bodily function? How? (Chest pain, [place], IA, pneumonia, PE, COPD, DKA, ARF, appy, cholecystitis, CVA, Diverticulitis, Homicidal, Suicidal, threat to staff... and all critical care pts) @ -No (Meet Pack) - Lab Data Lab Results 02/29/24 Range/Units 18:33 Influenza Type A (PCR) Not Detected (Not Detectd) Influenza Type B (PCR) Not Detected (Not Detectd) RSV (PCR) Not Detected (Not Detectd) SARS-CoV-2 (PCR) Not Detected (Not Detectd) Disposition <Glenn Hahn - Last Filed: 02/29/24 18:02> Is patient prescribed a controlled substance at d/c from ED?: No Time of Disposition: 19:27 <Meet Pack - Last Filed: 02/29/24 19:28> Clinical Impression: Sinusitis Disposition: HOME SELF-CARE Condition: Stable Instructions (If sedation given, give patient instructions): Sinusitis (ED) Additional Instructions: Prescription sent to pharmacy. Please do follow-up with your primary care physician in the next day or 2 for recheck. Return for increased pain, weakness, fevers, worsening symptoms or other concerns. Use saline nasal spray 4-5 times daily. [id number] antihistamine such as Claritin as needed. Prescriptions: Amoxic-Pot Clav 875-125Mg [Augmentin 875-125] 1 tab PO Q12HR #20 tab Referrals: Scottie Howell MD [Primary Care Provider] - 1-2 days
[2024-02-29] MEDS: ACETAMINOPHEN TAB 500 MG TAB PO STA (19:34)
[2024-02-29] MEDS: AMOXIC-POT CLAV 875MG STARTER PACK 2 TAB BTL PO STA (19:34)
[2024-02-29 21:07] VITALS: BP 125/80; PULSE 65
== END 2024-02-29 19:35 | disposition home or self-care (01) ==
LOC: EC 16:42
DX: J32.9 Chronic sinusitis, unspecified (principal); F12.90 Cannabis use, unspecified, uncomplicated; Z88.8 Allergy status to other drugs, medicaments and biological substances
CPT/HCPCS: 87636; 99284

== ENCOUNTER 2025-01-10 23:32 | Emergency (ER) | payer OTHER ==
--- NOTE | 2025-01-11 00:07 | ED ---
URI HPI - General Chief Complaint: Upper Respiratory Infection Stated Complaint: SOB Time Seen by Provider: 01/11/25 00:05 Source: patient, RN notes reviewed Mode of arrival: ambulatory Limitations: no limitations - History of Present Illness Initial Comments: 29-year-old female presenting for cough x 3 days with nasal congestion. Describes a productive cough. Denies sore throat. Able to tolerate orals. No chest pain or shortness of breath. States she has a history of childhood asthma. - Related Data Home Medications Medication Instructions Recorded Confirmed Levothyroxine Sodium [Synthroid] 100 mcg PO DAILY 06/19/21 06/19/21 Previous Rx's Medication Instructions Recorded Famotidine [Pepcid] 20 mg PO BID #30 tablet 06/19/21 Ondansetron [Zofran ODT] 4 mg PO Q8HR PRN #15 tab 06/19/21 Acetaminophen [Tylenol] 500 mg PO Q4-6H PRN #24 tab 01/18/22 Cyclobenzaprine [Flexeril] 10 mg PO TID PRN #20 tab 01/18/22 Ibuprofen [Motrin] 600 mg PO Q8HR PRN #30 tab 01/18/22 Azithromycin [Zithromax Z-pack (6 0 mg PO DIRECTED #1 packet 02/25/22 tabs)] predniSONE 50 mg PO DAILY #5 tab 02/25/22 Amoxic-Pot Clav 875-125Mg 1 tab PO Q12HR #20 tab 02/29/24 [Augmentin 875-125] Albuterol Inhaler [Ventolin Hfa 1 - 2 puff INHALATION Q6H PRN #1 01/11/25 Inhaler] each Azithromycin [Zithromax Z Pack] 0 tab PO DIRECTED #6 tab 01/11/25 Allergies Allergy/AdvReac Type Severity Reaction Status Date / Time imani Allergy Swelling Verified 01/10/25 23:37 Review of Systems ROS Statement: Those systems with pertinent positive or pertinent negative responses have been documented in the HPI. ROS Other: All systems not noted in ROS Statement are negative. Past Medical History Past Medical History: Thyroid Disorder History of Any Multi-Drug Resistant Organisms: None Reported Past Surgical History: No Surgical Hx Reported Past Psychological History: No Psychological Hx Reported, Anxiety, Depression, PTSD Smoking Status: Never smoker Past Alcohol Use History: Occasional Past Drug Use History: Marijuana General Exam Limitations: no limitations General appearance: alert, in no apparent distress Head exam: Present: atraumatic, normocephalic, normal inspection Eye exam: Present: normal appearance, PERRL, EOMI. Absent: scleral icterus, conjunctival injection, periorbital swelling ENT exam: Present: normal exam, mucous membranes moist Neck exam: Present: normal inspection. Absent: tenderness, meningismus, lymphadenopathy Respiratory exam: Present: wheezes (Mild expiratory wheezing in all lung schwarz). Absent: normal lung sounds bilaterally, respiratory distress, rales, rhonchi, stridor, accessory muscle use Cardiovascular Exam: Present: regular rate, normal rhythm, normal heart sounds. Absent: systolic murmur, diastolic murmur, rubs, gallop, clicks Neurological exam: Present: alert, oriented X3 Psychiatric exam: Present: normal affect, normal mood Skin exam: Present: warm, dry, intact, normal color. Absent: rash Course Vital Signs 01/10/25 01/11/25 01/11/25 23:34 01:13 01:57 Temperature 97.9 F Pulse Rate 69 71 75 Respiratory 17 20 Rate Blood Pressure 108/76 137/83 O2 Sat by Pulse 98 100 Oximetry 01/11/25 02:03 Temperature Pulse Rate 80 Respiratory Rate Blood Pressure O2 Sat by Pulse Oximetry Medical Decision Making - Medical Decision Making Was pt. sent in by a medical professional or institution ([facility], [employer], urgent care, hospital, or residential...) When possible be specific @ -No Did you speak to anyone other than the patient for history (EMS, parent, family, police, friend...)? What history was obtained from this source @ -No Did you review nursing and triage notes (agree or disagree)? Why? @ -I reviewed and agree with nursing and triage notes Were old charts reviewed (outside hosp., previous admission, EMS record, old EKG, old radiological studies, urgent care reports/EKG's, residential records)? Report findings @ -No old charts were reviewed Differential Diagnosis (chest pain, altered mental status, abdominal pain women, abdominal pain men, vaginal bleeding, weakness, fever, dyspnea, syncope, headache, dizziness, GI bleed, back pain, seizure, CVA, palpatations, mental health, musculoskeletal)? @ -Viral URI, influenza, COVID-19, RSV, pneumonia, asthma exacerbation EKG interpreted by me (3pts min.). @ -None X-rays interpreted by me (1pt min.). @ -Chest x-ray reveals bronchitis, may be infectious or inflammatory, there is moderate peribronchial thickening of central and lower lobe with increased interstitial densities of lower lung CT interpreted by me (1pt min.). @ -None done U/S interpreted by me (1pt. min.). @ -None done What testing was considered but not performed or refused? (CT, X-rays, U/S, labs)? Why? @ -None What meds were considered but not given or refused? Why? @ -None Did you discuss the management of the patient with other professionals (professionals i.e. , PA, TICKER MAINTAINER, lab, RT, psych nurse, long term care social worker, emissions repair technician, teacher, assignment officer, rn field case manager)? Give summary @ -No Was smoking cessation discussed for >3mins.? @ -No Was critical care preformed (if so, how long)? @ -No Were there social determinants of health that impacted care today? How? (Homelessness, low income, unemployed, alcoholism, drug addiction, transportation, low edu. Level, literacy, decrease access to med. care, shelter, rehab)? @ -No Was there de-escalation of care discussed even if they declined (Discuss DNR or withdrawal of care, Hospice)? DNR status @ -No What co-morbidities impacted this encounter? (DM, HTN, Smoking, COPD, CAD, Cancer, CVA, ARF, Chemo, Hep., AIDS, mental health diagnosis, sleep apnea, morbid obesity)? @ -None Was patient admitted / discharged? Hospital course, mention meds given and route, prescriptions, significant lab abnormalities, going to OR and other pertinent info. @ -Discharge. 29-year-old female presenting for cough x 3 days with nasal congestion. Patient is afebrile satting 98% on room air. No signs of respiratory distress. There is mild expiratory wheezing in all lung schwarz bilaterally. Patient is provided with IM Decadron injection and DuoNeb treatment. Patient is negative for COVID-19, influenza, and RSV. Chest x-ray reveals moderate peribronchial thickening of central and lower lobe with increased interstitial densities with lower lung consistent with bronchitis. Discussed diagnosis of acute tracheobronchitis with patient. Patient will be provided with outpatient prescription for azithromycin for bacterial coverage. Albuterol inhaler sent to pharmacy per patient request. Appropriate return precautions and follow-up care discussed. Case was discussed with my ED attending Dr. Sands. Undiagnosed new problem with uncertain prognosis? @ -No Drug Therapy requiring intensive monitoring for toxicity (Heparin, Nitro, Insulin, Cardizem)? @ -No Were any procedures done? @ -No Diagnosis/symptom? @ -Acute tracheobronchitis Acute, or Chronic, or Acute on Chronic? @ -Acute Uncomplicated (without systemic symptoms) or Complicated (systemic symptoms)? @ -Uncomplicated Side effects of treatment? @ -No Exacerbation, Progression, or Severe Exacerbation? @ -No Poses a threat to life or bodily function? How? (Chest pain, [place], NH, pneumonia, PE, COPD, DKA, ARF, appy, cholecystitis, CVA, Diverticulitis, Homicidal, Suicidal, threat to staff... and all critical care pts) @ -No - Lab Data Lab Results 01/10/25 Range/Units 23:41 Influenza Type A (PCR) Not Detected (Not Detectd) Influenza Type B (PCR) Not Detected (Not Detectd) RSV (PCR) Not Detected (Not Detectd) SARS-CoV-2 (PCR) Not Detected (Not Detectd) Disposition Clinical Impression: Acute tracheobronchitis Disposition: HOME SELF-CARE Condition: Stable Instructions (If sedation given, give patient instructions): Acute Bronchitis (ED) Additional Instructions: Take azithromycin as prescribed. Use albuterol inhaler as needed for shortness of breath. Please return to the Emergency Department if symptoms worsen or any other concerns. Prescriptions: Albuterol Inhaler [Ventolin Hfa Inhaler] 1 - 2 puff INHALATION Q6H PRN #1 each PRN Reason: Shortness Of Breath Azithromycin [Zithromax Z Pack] 0 tab PO DIRECTED #6 tab Is patient prescribed a controlled substance at d/c from ED?: No Referrals: None,Stated [Primary Care Provider] - 1-2 days Time of Disposition: 02:10
[2025-01-11 00:25] LABS: Influenza A Not Detected (Not Detectd); Influenza B Not Detected (Not Detectd); RSV Not Detected (Not Detectd)
--- NOTE | 2025-01-11 01:29 | XR ---
EXAM: XR Chest, 2 Views CLINICAL HISTORY: ITS.REASON XR Reason: cough TECHNIQUE: Frontal and lateral views of the chest. COMPARISON: Prior chest x-ray from February 25, 2022. FINDINGS: Lungs: Moderate peribronchial thickening of the central and lower lobe bronchi with increased interstitial densities in the lower lungs. No consolidation. Pleural space: Unremarkable. No pneumothorax. Heart: Unremarkable. No cardiomegaly. Mediastinum: Prominent milton. Normal mediastinal contour. Bones/joints: Unremarkable. No acute fracture. IMPRESSION: Bronchitis, which may be infectious or inflammatory causes. No consolidation or pleural effusion..
[2025-01-11] MEDS: IPRATROPIUM-ALBUTEROL 3 ML NEB INHALATION STA (01:57)
[2025-01-11] MEDS: DEXAMETHASONE SOD PHOSPHATE 10 MG/ML 1 ML VIAL IM STA (01:58)
[2025-01-11 02:04] VITALS: PULSE 80
[2025-01-11 02:41] VITALS: BP 100/70; RESP 18; TEMP 98
== END 2025-01-11 02:30 | disposition home or self-care (01) ==
LOC: EC 23:32
DX: J20.9 Acute bronchitis, unspecified (principal); Z91.048 Other nonmedicinal substance allergy status
CPT/HCPCS: 71046; 87636; 94640; 96372; 99285